=== PATIENT | female | born 1960 ===

== ENCOUNTER 2017-12-19 13:32 | Emergency (ER) | payer MEDICAID ==
[2017-12-19 13:54] VITALS: BP 150/77; PULSE 90; RESP 18; TEMP 98.1; O2SAT 99
--- NOTE | 2017-12-19 14:44 | ED PDOC ---
HPI: General Adult Time Seen by Provider: 12/19/17 14:29 Chief Complaint (Nursing): Upper Extremity Problem/Injury Chief Complaint (Provider): Right hand pain, bilateral knee pain s/p fall History Per: Patient History/Exam Limitations: no limitations Onset/Duration Of Symptoms: Days Have you had recent travel within the past 21 days to any of the following countries: [place], [place], [place] or [place]?: No Current Symptoms Are (Timing): Still Present Additional Complaint(s): 57 yo female presents with right hand pain and bilateral knee pain after trip and fall. Pt did not take anything for pain. Pt also reports abrasion on the right knee. Pt ambulated to room. Past Medical History Reviewed: Historical Data, Nursing Documentation, Vital Signs Vital Signs: Last Vital Signs Temp 98.1 F 12/19/17 13:52 Pulse 90 12/19/17 13:52 Resp 18 12/19/17 13:52 BP 150/77 12/19/17 13:52 Pulse Ox 99 12/19/17 14:45 - Medical History PMH: Depression, HTN, Hyperlipidemia - Surgical History Surgical History: No Surg Hx - Family History Family History: States: No Known Family Hx - Living Arrangements Living Arrangements: With Family - Social History Current smoker - smoking cessation education provided: No - Home Medications Home Medications: Ambulatory Orders Medication Instructions Recorded Naproxen [Naprosyn] 500 mg PO BID PRN #20 tablet 12/19/17 - Allergies Allergies/Adverse Reactions: Allergies Allergy/AdvReac Type Severity Reaction Status Date / Time No Known Allergies Allergy Verified 12/19/17 13:52 Review of Systems ROS Statement: Except As Marked, All Systems Reviewed And Found Negative Constitutional: Negative for: Fever, Chills Musculoskeletal: Positive for: Hand Pain (Right ), Other (Knees) Skin: Positive for: Other. Negative for: Bruising Physical Exam - Reviewed Nursing Documentation Reviewed: Yes Vital Signs Reviewed: Yes - Physical Exam Appears: Positive for: Well, Non-toxic, No Acute Distress Head Exam: Positive for: ATRAUMATIC, NORMAL INSPECTION, NORMOCEPHALIC Skin: Positive for: Normal Color (Abrasion, right knee; no ecchymosis), Warm Eye Exam: Positive for: Normal appearance ENT: Positive for: Normal ENT Inspection Neck: Positive for: Normal, Painless ROM Respiratory: Negative for: Accessory Muscle Use, Respiratory Distress Pulses-Radial (L): 2+ Pulses-Radial (R): 2+ Back: Positive for: Normal Inspection Extremity: Negative for: Normal ROM (decreased ROM in the right fingers due to pain - Pt will not attempt to bend), Deformity, Swelling Neurologic/Psych: Positive for: Alert, Oriented - ECG O2 Sat by Pulse Oximetry: 99 Medical Decision Making Medical Decision Making: wrist, hand and knee x-ray normal. Disposition - Clinical Impression Clinical Impression: Fall, Hand injury, Knee pain - Patient ED Disposition Is Patient to be Admitted: No Counseled Patient/Family Regarding: Diagnosis, Need For Followup - Disposition Disposition: Routine/Home Disposition Time: 16:12 Condition: GOOD Prescriptions: Naproxen [Naprosyn] 500 mg PO BID PRN #20 tablet PRN Reason: Pain Instructions: Common Finger Injuries Forms: [facility] (Vietnamese)
--- NOTE | 2017-12-19 15:47 | RAD ---
PROCEDURE: Right Wrist Radiographs. HISTORY: pain s/p fall COMPARISON: None. FINDINGS: BONES: No acute fracture. JOINTS: Unremarkable. SOFT TISSUES: Normal. OTHER FINDINGS: None. IMPRESSION: No demonstrated fracture or dislocation.
--- NOTE | 2017-12-19 15:48 | RAD ---
PROCEDURE: Bilateral Knee Radiographs. HISTORY: pain s/p fall COMPARISON: None. FINDINGS: BONES: Right Knee: No acute fracture. Left Knee: No acute fracture. JOINTS: Right Knee: Mild tibial femoral compartment narrowing with mild degenerative spurring. Left knee: Mild tibial femoral compartment narrowing with mild degenerative spurring. SOFT TISSUES: Right Knee: Normal. Left Knee: Normal. JOINT EFFUSION: Right Knee: None. Left Knee: None. OTHER FINDINGS: Small quadriceps tendon enthesophytes. IMPRESSION: No demonstrated fracture or dislocation. Mild degenerative changes.
== END 2017-12-19 16:20 | disposition home or self-care (01) ==
LOC: H.ER 13:32
DX: S80.211A Abrasion, right knee, initial encounter (principal); S89.92XA Unspecified injury of left lower leg, initial encounter; S69.91XA Unspecified injury of right wrist, hand and finger(s), initial encounter; W01.0XXA Fall on same level from slipping, tripping and stumbling without subsequent striking against object, initial encounter; Y92.89 Other specified places as the place of occurrence of the external cause; E78.5 Hyperlipidemia, unspecified; F32.9 Major depressive disorder, single episode, unspecified; I10 Essential (primary) hypertension